=== PATIENT | female | born 1970 | race Caucasian/White ===

== ENCOUNTER → 2020-08-06 | Outpatient (CLI) | payer OTHER ==
[~2020-08-06] MED LIST: LEVO125T PO; testosterone cream
== END | disposition home or self-care (01) ==
LOC: CFH 15:48
PROVIDERS: ATTEND Obstetrics & Gynecology
DX: Z12.31 Encounter for screening mammogram for malignant neoplasm of breast (principal)
CPT/HCPCS: 77063; 77067

== ENCOUNTER → 2021-03-27 | Outpatient (CLI) | payer OTHER ==
[~2021-03-27] MED LIST changes: +OMNIPAQUE 350 MG/ML, 75ML BOTTLE ONE
== END | disposition home or self-care (01) ==
LOC: CFH 15:09
PROVIDERS: ATTEND Family Medicine
DX: R91.8 Other nonspecific abnormal finding of lung field (principal); D48.9 Neoplasm of uncertain behavior, unspecified
CPT/HCPCS: 71260; Q9967

== ENCOUNTER → 2021-04-16 | Outpatient (CLI) | payer OTHER ==
[~2021-04-16] MED LIST changes: +C TESTOSTERONE TP; +CALC625T23 PO; +CHOL10003 PO; +FERR-46 PO; +LEVO137T2 PO; +MAGN400T9 PO; +MULT-658 PO; -OMNIPAQUE 350 MG/ML, 75ML BOTTLE ONE; +UBID100C41 PO
== END | disposition home or self-care (01) ==
LOC: PETCFH 12:37
PROVIDERS: ATTEND Physician Assistant
DX: R91.8 Other nonspecific abnormal finding of lung field (principal)
CPT/HCPCS: 78815; A9552

== ENCOUNTER → 2021-04-19 | Day surgery (SDC) | payer OTHER ==
[~2021-04-19] VITALS: Ht 180.3 cm; Wt 79.5 kg
== END | disposition home or self-care (01) ==
LOC: OR 11:14
PROVIDERS: ATTEND Internal Medicine
DX: R91.8 Other nonspecific abnormal finding of lung field (principal); Z53.8 Procedure and treatment not carried out for other reasons; Z20.822 Contact with and (suspected) exposure to COVID-19
CPT/HCPCS: U0003; U0005